=== PATIENT | female | born 1955 | race Caucasian/White ===

== ENCOUNTER 2023-08-12 07:34 | Inpatient (IN) ==
[2023-08-12] MEDS ORDERED: IOPAMIDOL 100 ML BOTTLE IV ONE (07:35)
[2023-08-12 07:57] LABS: POC Calcium, Ionized 1.13 (1.16-1.32); POC Creatinine 0.5 (0.6-1.2); POC Potassium 3.6 (3.3-5.1)
[2023-08-12] MEDS ORDERED: 0.9 % SODIUM CHLORIDE 1,000 ML IV ONE ×2 (08:02→10:03)
[2023-08-12 08:31] LABS: Basophils # (Auto) 0.02 K/mcL (0.00-0.30); Basophils % (Auto) 0.1 % (0.0-2.0); Eosinophils # (Auto) 0 K/mcL (0.00-0.70); Eosinophils % (Auto) 0 % (0.0-7.0); Hematocrit 38.1 % (34.1-44.9); Hemoglobin 13.4 g/dL (11.2-15.7); Lymphocytes % (Auto) 2.7 % (15.5-49.0); Mean Corpuscular HGB Conc 35.2 g/dL (31.0-36.0); Mean Platelet Volume 10.3 fL (8.8-12.5); Monocytes % (Auto) 6.4 % (1.0-12.0); Neutrophils % (Auto) 87.2 % (38.0-78.0); Platelet Count 295 K/mcL (140-440); RBC 4.48 M/mcL (3.59-5.38); Red Cell Distribution Width 12.1 % (11.5-14.5); WBC 21.9 K/mcL (4.5-11.0)
[2023-08-12 08:45] LABS: ALT/SGPT 23 U/L (<40); AST/SGOT 30 U/L (<32); Albumin 3.2 gm/dL (3.2-5.2); Alkaline Phosphatase 174 U/L (39-117); Bilirubin,Direct 1.8 mg/dL (<0.3); Bilirubin,Total 2.2 mg/dL (0.1-1.0); Globulin 3.6 gm/dL (2.2-3.7); Thyroid Stimulating Hormone 1.43 uIU/mL (0.27-5.01)
[2023-08-12] MEDS ORDERED: PIPERACILLIN SODIUM/TAZOBACTAM 3.375 GM in DEXTROSE 5% IN WATER 50 ML IV ONE (08:50)
[2023-08-12] MEDS ORDERED: morphine 4 MG/ML VIAL IV ONE ×2 (08:50→10:43)
[2023-08-12] MEDS ORDERED: ONDANSETRON 4 MG/2 ML VIAL IV ONE (08:50)
[2023-08-12 09:10] LABS: Free T4 (Free Thyroxine) 1.24 ng/dL (0.93-1.70)
[2023-08-12] MEDS ORDERED: VANCOMYCIN 1,000 MG in 0.9 % SODIUM CHLORIDE 250 ML IV ONE (10:15)
[2023-08-12] MEDS: VANCOMYCIN PER PHARMACY IV ONE ×2 (10:38→11:08)
[2023-08-12] MEDS ORDERED: KETOROLAC 30 MG/ML VIAL IV ONE (10:43)
[2023-08-12] MEDS ORDERED: 0.9 % SODIUM CHLORIDE 500 ML IV ONE (11:51)
[2023-08-12 12:15] LABS: Blood Urea Nitrogen 13 mg/dL (8-23); Calcium 9.5 mg/dL (8.6-10.4); Carbon Dioxide 22 mmol/L (22-30); Chloride 84 mmol/L (96-108); Glomerular Filtration Rate 92; Glucose 107 mg/dL (70-105); Uric Acid 3.5 mg/dL (2.5-8.0)
[2023-08-12 12:26] LABS: Band Neutrophils % 3 % (0-10); Lymphocytes % 4 % (15-49); Monocytes % (Manual) 7 % (1-12); Platelet Estimate NORMAL (Normal); RBC Morphology NORMAL (Normal); Segmented Neutrophils % 86 % (38-78)
[2023-08-12] MEDS ORDERED: POLYETHYLENE GLYCOL 3350 17 GM PACKET PO PRN (13:10)
[2023-08-12] MEDS ORDERED: MAGNESIUM SULFATE 2 GM/50 ML BAG IV PRN (13:10)
[2023-08-12] MEDS ORDERED: POTASSIUM CHLORIDE 40 MEQ in DEXTROSE 5% IN WATER 500 ML IV PRN (13:10)
[2023-08-12] MEDS ORDERED: POTASSIUM CHLORIDE 20 MEQ TABLET PO PRN ×2 (13:10)
[2023-08-12] MEDS ORDERED: SENNOSIDES 8.8 MG/5 ML ML PT ONE (13:10)
[2023-08-12] MEDS ORDERED: SENNOSIDES 1 TABLET PO PRN (13:10)
[2023-08-12] MEDS ORDERED: POLYETHYLENE GLYCOL 3350 17 GM PACKET PO ONE (13:10)
[2023-08-12] MEDS ORDERED: SENNOSIDES 8.8 MG/5 ML ML PT PRN (13:10)
[2023-08-12] MEDS ORDERED: IPRATROPIUM/ALBUTEROL 3 ML AMPUL.NEB NEB PRN (13:10)
[2023-08-12] MEDS ORDERED: SENNOSIDES 1 TABLET PO ONE (13:30)
[2023-08-12 13:39] LABS: Osmolality,Urine 310 mOSM/kg (80-1000)
[2023-08-12] MEDS: AZITHROMYCIN 500 MG in DEXTROSE 5% IN WATER 250 ML IV SCH (13:54)
[2023-08-12] MEDS: cefTRIAXone 1 GM VIAL IV SCH (13:54)
[2023-08-12] MEDS: 0.9 % SODIUM CHLORIDE 10 ML SYRINGE IV SCH ×2 (13:56→22:06)
[2023-08-12 14:07] LABS: Sodium, Urine Random < 10 mmol/L
[2023-08-12] MEDS ORDERED: 0.9 % SODIUM CHLORIDE 1,000 ML IV SCH (14:30)
[2023-08-12] MEDS: DOCUSATE SODIUM 100 MG CAPSULE PO SCH (22:06)
[2023-08-12] MEDS: ACETAMINOPHEN 325 MG TABLET PO PRN (23:38)
[2023-08-13 06:10] LABS: Basophils # (Auto) 0.02 K/mcL (0.00-0.30); Basophils % (Auto) 0.1 % (0.0-2.0); Eosinophils # (Auto) 0.02 K/mcL (0.00-0.70); Eosinophils % (Auto) 0.1 % (0.0-7.0); Hematocrit 34.1 % (34.1-44.9); Hemoglobin 11.4 g/dL (11.2-15.7); Lymphocytes # (Auto) 1.09 K/mcL (1.50-4.80); Mean Cell Volume 88.8 fL (80.0-100.0); Mean Corpuscular HGB Conc 33.4 g/dL (31.0-36.0); Monocytes # (Auto) 0.95 K/mcL (0.10-0.90); Monocytes % (Auto) 4.3 % (1.0-12.0); Neutrophils % (Auto) 89.1 % (38.0-78.0); Platelet Count 275 K/mcL (140-440); RBC 3.84 M/mcL (3.59-5.38); Red Cell Distribution Width 12.7 % (11.5-14.5)
[2023-08-13 06:35] LABS: ALT/SGPT 14 U/L (<40); AST/SGOT 17 U/L (<32); Albumin 2.4 gm/dL (3.2-5.2); Albumin/Globulin Ratio 0.8 (1.0-2.3); Alkaline Phosphatase 137 U/L (39-117); Bilirubin,Direct 0.7 mg/dL (<0.3); Bilirubin,Total 0.9 mg/dL (0.1-1.0); Blood Urea Nitrogen 12 mg/dL (8-23); Calcium 8.6 mg/dL (8.6-10.4); Carbon Dioxide 25 mmol/L (22-30); Chloride 91 mmol/L (96-108); Glomerular Filtration Rate 92; Glucose 102 mg/dL (70-105); Lactate Dehydrogenase 142 U/L (135-225); Triglycerides 105 mg/dL (<150)
[2023-08-13] MEDS: DOCUSATE SODIUM 100 MG CAPSULE PO SCH ×3 (07:32→20:57)
[2023-08-13] MEDS: 0.9 % SODIUM CHLORIDE 10 ML SYRINGE IV SCH ×3 (07:32→20:57)
[2023-08-13] MEDS: HYDROcodone/APAP 5/325MG TABLET PO PRN (07:33)
[2023-08-13] MEDS: ENOXAPARIN 40 MG/0.4 ML SYRINGE SQ SCH (07:36)
[2023-08-13] MEDS ORDERED: LACTULOSE 20 GM/30 ML ORAL.SOL PO ONE (07:39)
[2023-08-13] MEDS ORDERED: 0.9 % SODIUM CHLORIDE 500 ML IV ONE (07:45)
[2023-08-13] MEDS: cefTRIAXone 1 GM VIAL IV SCH (08:28)
[2023-08-13] MEDS: PHOSPHORUS 250 MG TABLET PO SCH ×4 (08:41→20:57)
[2023-08-13] MEDS: SENNOSIDES 1 TABLET PO ONE ×2 (09:41→11:03)
[2023-08-13] MEDS: AZITHROMYCIN 500 MG in DEXTROSE 5% IN WATER 250 ML IV SCH (11:07)
[2023-08-13] MEDS: ACETAMINOPHEN 325 MG TABLET PO PRN (16:26)
[2023-08-14] MEDS: ONDANSETRON 4 MG/2 ML VIAL IV PRN ×2 (03:23→07:48)
[2023-08-14] MEDS: 0.9 % SODIUM CHLORIDE 10 ML SYRINGE IV SCH ×3 (05:07→21:33)
[2023-08-14 07:17] LABS: Hematocrit 32.6 % (34.1-44.9); Hemoglobin 11.2 g/dL (11.2-15.7); Mean Cell Volume 86.5 fL (80.0-100.0); Mean Corpuscular HGB Conc 34.4 g/dL (31.0-36.0); Mean Platelet Volume 9.8 fL (8.8-12.5); Platelet Count 345 K/mcL (140-440); RBC 3.77 M/mcL (3.59-5.38); Red Cell Distribution Width 12.6 % (11.5-14.5); WBC 22.1 K/mcL (4.5-11.0)
[2023-08-14 07:23] LABS: ALT/SGPT 13 U/L (<40); AST/SGOT 16 U/L (<32); Albumin 2.6 gm/dL (3.2-5.2); Albumin/Globulin Ratio 0.9 (1.0-2.3); Alkaline Phosphatase 207 U/L (39-117); Bilirubin,Direct 0.4 mg/dL (<0.3); Bilirubin,Total 0.5 mg/dL (0.1-1.0); Blood Urea Nitrogen 5 mg/dL (8-23); Calcium 8.6 mg/dL (8.6-10.4); Carbon Dioxide 29 mmol/L (22-30); Chloride 96 mmol/L (96-108); Globulin 2.9 gm/dL (2.2-3.7); Glomerular Filtration Rate 106; Glucose 112 mg/dL (70-105); Lactate Dehydrogenase 154 U/L (135-225); Phosphorous 2.4 mg/dL (2.5-4.5); Triglycerides 127 mg/dL (<150); Uric Acid 2.4 mg/dL (2.5-8.0)
[2023-08-14] MEDS ORDERED: METOPROLOL TARTRATE 50 MG TABLET PO ONE (08:02)
[2023-08-14] MEDS: cefTRIAXone 1 GM VIAL IV SCH (08:37)
[2023-08-14] MEDS: DOCUSATE SODIUM 100 MG CAPSULE PO SCH ×2 (08:38→21:32)
[2023-08-14] MEDS: ENOXAPARIN 40 MG/0.4 ML SYRINGE SQ SCH (08:38)
[2023-08-14] MEDS ORDERED: diphenhydrAMINE 25 MG CAPSULE PO PRN (09:13)
[2023-08-14 09:27] LABS: Band Neutrophils % 2 % (0-10); Eosinophils % (Manual) 1 % (0-7); Lymphocytes % 4 % (15-49); Monocytes % (Manual) 9 % (1-12); Platelet Estimate NORMAL (Normal); RBC Morphology NORMAL (Normal); Reactive Lymphocytes 2 % (0-2); Segmented Neutrophils % 82 % (38-78)
[2023-08-14] MEDS: AZITHROMYCIN 500 MG in DEXTROSE 5% IN WATER 250 ML IV SCH (11:19)
[2023-08-14] MEDS: guaiFENesin/CODEINE 10 ML UDC PO PRN ×2 (15:04→21:38)
[2023-08-14] MEDS: HYDROcodone/APAP 5/325MG TABLET PO PRN (18:28)
[2023-08-15] MEDS: guaiFENesin/CODEINE 10 ML UDC PO PRN (05:58)
[2023-08-15] MEDS: 0.9 % SODIUM CHLORIDE 10 ML SYRINGE IV SCH (05:58)
[2023-08-15 07:02] LABS: ALT/SGPT 15 U/L (<40); AST/SGOT 27 U/L (<32); Albumin 2.5 gm/dL (3.2-5.2); Albumin/Globulin Ratio 0.8 (1.0-2.3); Alkaline Phosphatase 161 U/L (39-117); Bilirubin,Direct 0.2 mg/dL (<0.3); Bilirubin,Total 0.3 mg/dL (0.1-1.0); Blood Urea Nitrogen 6 mg/dL (8-23); Calcium 8.5 mg/dL (8.6-10.4); Carbon Dioxide 31 mmol/L (22-30); Chloride 98 mmol/L (96-108); Globulin 3.1 gm/dL (2.2-3.7); Glomerular Filtration Rate 106; Glucose 118 mg/dL (70-105); Lactate Dehydrogenase 194 U/L (135-225); Phosphorous 2.8 mg/dL (2.5-4.5); Triglycerides 170 mg/dL (<150); Uric Acid 2.3 mg/dL (2.5-8.0)
[2023-08-15 07:16] LABS: Basophils # (Auto) 0.01 K/mcL (0.00-0.30); Basophils % (Auto) 0.1 % (0.0-2.0); Eosinophils # (Auto) 0.08 K/mcL (0.00-0.70); Eosinophils % (Auto) 0.7 % (0.0-7.0); Hematocrit 33.2 % (34.1-44.9); Hemoglobin 11.1 g/dL (11.2-15.7); Lymphocytes # (Auto) 2.42 K/mcL (1.50-4.80); Lymphocytes % (Auto) 22.7 % (15.5-49.0); Mean Cell Volume 88.3 fL (80.0-100.0); Mean Corpuscular HGB Conc 33.4 g/dL (31.0-36.0); Mean Platelet Volume 9.3 fL (8.8-12.5); Monocytes % (Auto) 7.5 % (1.0-12.0); Neutrophils % (Auto) 63.3 % (38.0-78.0); Platelet Count 368 K/mcL (140-440); RBC 3.76 M/mcL (3.59-5.38); Red Cell Distribution Width 13.1 % (11.5-14.5); WBC 10.7 K/mcL (4.5-11.0)
[2023-08-15] MEDS: cefTRIAXone 1 GM VIAL IV SCH (08:24)
[2023-08-15] MEDS: DOCUSATE SODIUM 100 MG CAPSULE PO SCH (08:24)
[2023-08-15] MEDS: ENOXAPARIN 40 MG/0.4 ML SYRINGE SQ SCH (08:24)
== END 2023-08-15 11:35 | disposition home or self-care (01) | DRG 871 ==
LOC: ED 07:34 → ICU 13:05 → MEDSUR 08-13 16:49
PROVIDERS: ADMIT Internal Medicine; ATTEND Internal Medicine